=== PATIENT | female | born 1985 | race Caucasian/White ===

== ENCOUNTER 2016-12-04 12:37 | Emergency (ER) | payer MEDICAID ==
[~2016-12-04] VITALS: Ht 172.7 cm; Wt 81.8 kg
[2016-12-04] MEDS ORDERED: IBUP-2070 PO (13:05)
[2016-12-04] MEDS ORDERED: IVERMECTIN 3 MG TABLET PO ONE ×2 (17:30)
[2016-12-04 17:34] VITALS: BP 128/74
[2016-12-04] MEDS ORDERED: ACETAMINOPHEN 500 MG TABLET PO ONE (17:45)
== END 2016-12-04 17:56 | disposition home or self-care (01) ==
LOC: EMS 12:39
DX: B86 Scabies (principal); M25.572 Pain in left ankle and joints of left foot; F17.210 Nicotine dependence, cigarettes, uncomplicated; Z88.6 Allergy status to analgesic agent
CPT/HCPCS: 99283